=== PATIENT | female | born 1960 | race African-American/Black ===

== ENCOUNTER 2017-05-01 13:43 | Emergency (ER) | payer OTHER ==
[~2017-05-01] VITALS: Ht 165.1 cm; Wt 72.6 kg
[~2017-05-01 13:43] MED LIST: DiphenhydrAMINE 50mg/ml Inj ONE; EPINEPHrine 1mg/1ml Amp ONE; Solu-MEDROL 125mg Inj ONE
[2017-05-01] MEDS ORDERED: Solu-MEDROL 125mg Inj IVP ONE (13:45)
[2017-05-01] MEDS ORDERED: EPINEPHrine 1mg/1ml Amp IM ONE (13:45)
[2017-05-01] MEDS ORDERED: DiphenhydrAMINE 50mg/ml Inj IVP ONE (13:45)
[2017-05-01] MEDS ORDERED: Famotidine 20 MG/ 2ML VIAL IVP ONE (13:45)
--- NOTE | 2017-05-01 13:52 | Emergency Room Report ---
History of Present Illness General Chief Complaint: Allergic Reaction Source: Patient Present Illness HPI Patient presents with allergic reaction. She has prior allergies to peanuts. Allegedly she's been intubated in the past. The peanut in her mouth and she spit it out; however she started having swelling in her throat and inability to talk. Paramedics picked her up just across the street and transported her here. She is beginning to be able to speak at this time. She feels itchiness. There is no wheezing. Denies any chest pain, nausea, vomiting or fever. She was intubated 3 years ago. This due to tomatoes. She is not sure if she will have to be observed. She does not have an epi pen. She is on a diuretic with BP meds. She feels muscle weakness. Allergies: Coded Allergies: IODINE (Verified Allergy, Unknown, 05/01/17) METOCLOPRAMIDE (Verified Allergy, Unknown, 05/01/17) Uncoded Allergies: PEANUTS (Allergy, Unknown, 05/01/17) Patient History Past Medical History: see triage record Social History: Denies: smoking Social History Narrative home Reviewed Nursing Documentation: PMH: Agreed, PSxH: Agreed Nursing Documentation-PMH Past Medical History: Deferred Review of Systems All Other Systems: negative except mentioned in HPI Physical Exam Vital Signs Date Time Temp Pulse Resp B/P Pulse Ox O2 Delivery O2 Flow Rate FiO2 05/01/17 13:36 97.2 88 18 132/95 98 Room Air Sp02 EP Interpretation: reviewed, normal General Appearance: well appearing, no apparent distress, GCS 15 Head: normocephalic Eyes: bilateral eye PERRL, bilateral eye normal inspection ENT: moist mucus membranes, tonsillar swelling - minimal uvula, other - hoarseness Neck: supple, other - no stridor Respiratory: lungs clear, normal breath sounds Cardiovascular #1: regular rate, rhythm Cardiovascular #2: 2+ radial (R) Gastrointestinal: normal inspection, normal bowel sounds, non tender, no mass, non-distended Musculoskeletal: back normal, gait/station normal, normal range of motion Neurologic: alert, oriented x3, grossly normal Psychiatric: mood/affect normal Skin: normal inspection, warm/dry, other - scar ant chest Medical Decision Making Diagnostic Impression: Primary Impression: Allergic reaction Qualified Codes: T78.40XA - Allergy, unspecified, initial encounter Additional Impression: Critical hypkalemia ER Course The patient presents with an allergic reaction. She feels her throat closing. Emergent treatment with IM epinephrine, IV Solu-Medrol, IV Benadryl and IV Pepcid is instituted. Evaluation will be with EKG, chest x-ray, laboratory. Fortunately the patient is beginning to be able to talk at this time. Labs remarkable for critical hypokalemia. EKG unremarkable as is CXR. Potassium given orally and IV. Improved voice and less swelling in throat (according to patient). VS have remained stable. In light of severe allergic reaction and low potassium, patient admitted to hospital. Discussed with Dr. Sauer. Accepted [facility]. Transfer, improved. Laboratory Tests Test 05/01/17 14:07 White Blood Count 8.1 K/UL (4.8-10.8) Red Blood Count 4.01 M/UL (4.20-5.40) L Hemoglobin 9.4 G/DL (12.0-16.0) L Hematocrit 29.7 % (37.0-47.0) L Mean Corpuscular Volume 74 FL (80-99) L Mean Corpuscular Hemoglobin 23.3 PG (27.0-31.0) L Mean Corpuscular Hemoglobin Concent 31.5 G/DL (32.0-36.0) L Red Cell Distribution Width 13.2 % (11.6-14.8) Platelet Count 243 K/UL (150-450) Mean Platelet Volume 7.3 FL (6.5-10.1) Neutrophils (%) (Auto) % (45.0-75.0) Lymphocytes (%) (Auto) % (20.0-45.0) Monocytes (%) (Auto) % (1.0-10.0) Eosinophils (%) (Auto) % (0.0-3.0) Basophils (%) (Auto) % (0.0-2.0) Differential Total Cells Counted 100 Neutrophils % (Manual) 27 % (45-75) L Lymphocytes % (Manual) 66 % (20-45) H Monocytes % (Manual) 3 % (1-10) Eosinophils % (Manual) 1 % (0-3) Basophils % (Manual) 2 % (0-2) Band Neutrophils 1 % (0-8) Platelet Estimate Adequate Platelet Morphology Normal Hypochromasia 2+ Anisocytosis 1+ Prothrombin Time 11.4 SEC (9.30-11.50) Prothrombin Time INR 1.1 (0.9-1.1) PTT 27 SEC (23-33) Sodium Level 143 mEQ/L (135-145) Potassium Level 2.1 mEQ/L (3.4-4.9) *L Chloride Level 107 mEQ/L (98-107) Carbon Dioxide Level 20 mEQ/L (20-30) Anion Gap 16 (5-15) H Blood Urea Nitrogen 13 mg/dL (7-23) Creatinine 0.7 mg/dL (0.5-0.9) Estimate Glomerular Filtration Rate > 60 mL/min (>60) Glucose Level 76 mg/dL (74-106) Calcium Level 6.6 mg/dL (8.6-10.2) L Total Bilirubin 0.3 mg/dL (0.0-1.2) Aspartate Amino Transferase (AST) 17 U/L (5-40) Alanine Aminotransferase (ALT) 10 U/L (3-33) Alkaline Phosphatase 35 U/L (35-104) Total Creatine Kinase 190 U/L (26-140) H Troponin I < 0.30 ng/mL (<=0.30) Total Protein 5.2 g/dL (6.6-8.7) L Albumin 3.1 g/dL (3.5-5.2) L Globulin 2.1 g/dL Albumin/Globulin Ratio 1.4 (1.0-2.7) EKG Diagnostic Results Rate: normal Rhythm: NSR ST Segments: no acute changes Rhythm Strip Diag. Results EP Interpretation: yes Rhythm: NSR, no PVC's, no ectopy Chest X-Ray Diagnostic Results Chest X-Ray Ordered: Yes # of Views/Limited/Complete: 1 View EP Interpretation: Yes Interpretation: no consolidation, no effusion, no pneumothorax, no acute cardiopulmonary disease Indication: Other Impression: No acute disease Interpreting ER Provider: benita Last Vital Signs Date Time Temp Pulse Resp B/P Pulse Ox O2 Delivery O2 Flow Rate FiO2 05/01/17 20:00 97.2 71 13 135/72 100 Room Air Status: improved Disposition: XFER SHT-TRM HOSP Condition: Serious - but stable for transfer Zachery Rivas M.D. May 01, 2017 13:52
[2017-05-01] MEDS ORDERED: LOSARTAN POTASS50 MG ORAL (14:00)
[2017-05-01] MEDS ORDERED: ATORVASTATIN CA20 MG ORAL (14:00)
[2017-05-01] MEDS ORDERED: FLECAINIDE ACE100 MG ORAL (14:00)
[2017-05-01] MEDS ORDERED: MENEST0.625 MG PO (14:00)
[2017-05-01] MEDS ORDERED: METOPROLOL TART50 M1 ORAL (14:00)
[2017-05-01] MEDS ORDERED: POTASSIUM CHLO10 ME3 ORAL (14:32)
[2017-05-01] MEDS ORDERED: VITAMIN E200 UNI2 PO (14:32)
[2017-05-01] MEDS ORDERED: VITAMIN D1000 UNI1 ORAL (14:32)
[2017-05-01] MEDS ORDERED: HYDROCHLOROTHIA25 MG ORAL (14:32)
[2017-05-01] MEDS ORDERED: SINGULAIR10 MG ORAL (14:32)
[2017-05-01 14:35] LABS: MEAN CORPUSCULAR HEMOGLOBIN 23.3 PG (27.0-31.0); MEAN CORPUSCULAR HGB CONC 31.5 G/DL (32.0-36.0); MEAN CORPUSCULAR VOLUME 74 FL (80-99); MEAN PLATELET VOLUME 7.3 FL (6.5-10.1); PLATELET COUNT 243 K/UL (150-450); RED BLOOD COUNT 4.01 M/UL (4.20-5.40); RED CELL DISTRIBUTION WIDTH 13.2 % (11.6-14.8); WHITE BLOOD COUNT 8.1 K/UL (4.8-10.8)
[2017-05-01 14:38] LABS: INR 1.1 (0.9-1.1); PROTHROMBIN TIME 11.4 SEC (9.30-11.50)
[2017-05-01 14:43] LABS: ALANINE AMINOTRANSFERASE 10 U/L (3-33); ALBUMIN/GLOBULIN RATIO 1.4 (1.0-2.7); ANION GAP 16 (5-15); ASPARTATE AMINO TRANSFERASE 17 U/L (5-40); CALCIUM 6.6 mg/dL (8.6-10.2); CARBON DIOXIDE 20 mEQ/L (20-30); CHLORIDE 107 mEQ/L (98-107); CREATININE 0.7 mg/dL (0.5-0.9); GLOMERULAR FILTRATION RATE > 60 mL/min (>60); HEMOLYSIS 1; SODIUM 143 mEQ/L (135-145); TOTAL PROTEIN 5.2 g/dL (6.6-8.7)
[2017-05-01 14:44] LABS: TROPONIN I < 0.30 ng/mL (<=0.30)
[2017-05-01 14:45] LABS: POTASSIUM 2.1 mEQ/L (3.4-4.9)
[2017-05-01] MEDS ORDERED: KCl 10% 40mEq/30ml liquid ORAL STA (14:48)
--- NOTE | 2017-05-01 15:06 | Diagnostic Imaging Report ---
Indication: DYSPNEA Technique: One view of the chest Comparison: none Findings: Lungs and pleural spaces are clear. Heart size is normal. Impression: Negative
[2017-05-01 15:18] VITALS: BP 139/61
[2017-05-01 16:23] LABS: BAND NEUTROPHILS % (MANUAL) 1 % (0-8); BASOPHILS % (MANUAL) 2 % (0-2); EOSINOPHILS % (MANUAL) 1 % (0-3); LYMPHOCYTES % (MANUAL) 66 % (20-45); NEUTROPHILS % (MANUAL) 27 % (45-75); TOTAL CELLS COUNTED 100
[2017-05-01 16:24] LABS: ANISOCYTOSIS 1+; HYPOCHROMASIA 2+; PLATELET ESTIMATE ADEQUATE; PLATELET MORPHOLOGY NORMAL
[2017-05-01 18:43] VITALS: BP 134/61
[2017-05-01 20:00] VITALS: BP 135/71
[2017-05-03 11:05] LABS: OTHERS PATHOLOGIST COMMENT
--- NOTE | 2017-05-03 19:11 | Cardiology Report ---
APPROVED REPORT EKG Measurement Heart [id number] Normal sinus rhythm Septal infarct, age undetermined Abnormal ECG
== END 2017-05-01 20:00 | disposition short-term general hospital (02) ==
LOC: EDBD 13:43 → EMR 14:12
DX: T78.40XA Allergy, unspecified, initial encounter (principal); E87.6 Hypokalemia; Z91.010 Allergy to peanuts; Z91.041 Radiographic dye allergy status; Z88.8 Allergy status to other drugs, medicaments and biological substances
CPT/HCPCS: 36415; 71010; 80053; 82550; 84484; 85007; 85025; 85610; 85730; 93005; 96360; 96361; 96372; 96374; 96375; 99285; J0171; J1200; J2930; J3480; S0028